=== PATIENT | male | born 1960 | race Caucasian/White ===

== ENCOUNTER 2021-12-11 11:17 | Inpatient (IN) | payer MEDICAID, OTHER ==
[~2021-12-11] VITALS: Ht 172.7 cm; Wt 108.0 kg
[2021-12-11] MEDS ORDERED: cloNIDine HCL 0.1 MG TAB PO ONE (11:30)
[2021-12-11 12:46] LABS: Eosinophils # (auto) 0.2 10 ^3/uL (0-0.8); Monocytes # (auto) 0.4 10 ^3/uL (0-1.3); Nucleated Red Blood Cells % 0.1 %
[2021-12-11 12:48] LABS: Basophils # (auto) 0 10 ^3/uL (0-0.2); Basophils % (auto) 0.7 % (0.0-2.0); Eosinophils % (auto) 3.1 % (0.0-7.0); Hematocrit 44.6 % (41.0-53.0); Hemoglobin 14.6 g/dL (13.5-17.5); Lymphocytes # (auto) 1.4 10 ^3/uL (0.4-5.4); Lymphocytes % (auto) 23.8 % (10.0-50.0); Mean Corpuscular Hemoglobin 23.8 pg (28.0-32.0); Mean Corpuscular Hgb Conc. 32.8 g/dL (32.0-36.0); Mean Corpuscular Volume 72.6 fL (80.0-100.0); Monocytes % (auto) 7.3 % (0.0-12.0); Neutrophils # (auto) 3.8 10 ^3/uL (1.6-8.6); Neutrophils % (auto) 65.1 % (37.0-80.0); Red Blood Cells 6.14 10^6/uL (4.5-5.90); Red Cell Distribution Width 16.6 % (11.8-14.3); White Blood Cell 5.8 10^3/uL (4.4-10.8)
[2021-12-11 12:50] LABS: Calcium 9.4 mg/dL (8.5-10.1); Potassium 4.6 mmol/L (3.5-5.1)
[2021-12-11 12:58] LABS: BUN/Creatinine Ratio 25.6; Bilirubin, Total 0.3 mg/dL (0.2-1.0); Total Protein 8.3 g/dL (6.4-8.2)
[2021-12-11] MEDS ORDERED: ASPirin 81 mg TAB PO ONE (13:15)
[2021-12-11] MEDS ORDERED: NITROGLYCERIN 0.4 MG SL TAB SL PRN (15:00)
[2021-12-11] MEDS ORDERED: cloNIDine HCL 0.1 MG TAB PO PRN (15:00)
[2021-12-11] MEDS ORDERED: ONDANSETRON HCL 4 MG/2 ML VIAL IV PRN (15:00)
[2021-12-11] MEDS ORDERED: HYDROcodone-ACET 5/325MG TAB PO PRN (15:00)
[2021-12-11] MEDS ORDERED: MORPHINE SULFATE INJECTION 2 MG/ML SYRG IV PRN (15:00)
[2021-12-11] MEDS ORDERED: ACETAMINOPHEN 325 MG TAB PO PRN ×2 (15:00)
[2021-12-11] MEDS: ENOXAPARIN SOD 100 MG/1 ML SYRINGE SC SCH (17:17)
[2021-12-11 18:21] VITALS: BP_SYST 153; BP_DIAS 74; BP_DIAS 79
[2021-12-11] MEDS ORDERED: INSU1INJ19 SC (18:59)
[2021-12-11] MEDS ORDERED: BACL10TA PO (18:59)
[2021-12-11] MEDS ORDERED: METF-370 PO (19:01)
[2021-12-11] MEDS ORDERED: GLIP5TAB12 PO (19:01)
[2021-12-11] MEDS ORDERED: GEMF-19 PO (19:01)
[2021-12-11] MEDS ORDERED: OMEP20TA PO (19:01)
[2021-12-11] MEDS ORDERED: ERTU15TA PO (19:05)
[2021-12-11] MEDS ORDERED: [UNRECOGNIZED DRUG - CODE] PO (19:05)
[2021-12-11] MEDS ORDERED: ASPI81CH49 PO (19:05)
[2021-12-11] MEDS ORDERED: AML5T PO (19:05)
[2021-12-11] MEDS ORDERED: LISI40TA11 PO (19:05)
[2021-12-11] MEDS ORDERED: GABA400C11 PO (19:05)
[2021-12-11] MEDS: METOPROLOL TARTRATE 25 MG TAB PO SCH (20:00)
[2021-12-11] MEDS ORDERED: DEXTROSE (50%) 50ML SYRG IV PRN (21:45)
[2021-12-11] MEDS ORDERED: ATORVASTATIN 20 MG TAB PO SCH (22:00)
[2021-12-11] MEDS: GABAPENTIN 400 MG CAP PO SCH (23:27)
[2021-12-11] MEDS: LISINOPRIL 20 MG TAB PO SCH (23:30)
[2021-12-11] MEDS: InsuLIN REG 1unit/0.01ml Soln (100units/ml) SC SCH (23:33)
[2021-12-11] MEDS: ACCU-CHEK COMFORT CURVE STRIP VI SCH (23:36)
[2021-12-12 05:00] VITALS: BP 123/59
[2021-12-12] MEDS: ENOXAPARIN SOD 100 MG/1 ML SYRINGE SC SCH (05:38)
[2021-12-12] MEDS: ACCU-CHEK COMFORT CURVE STRIP VI SCH ×2 (06:47→11:30)
[2021-12-12] MEDS: InsuLIN REG 1unit/0.01ml Soln (100units/ml) SC SCH ×2 (06:47→11:30)
[2021-12-12 07:01] LABS: INR 1.06 (0.9-1.15); Partial Thromboplastin Time 35.3 sec (23.6-33.0)
[2021-12-12 07:17] LABS: Calcium 8.7 mg/dL (8.5-10.1); Potassium 4.5 mmol/L (3.5-5.1)
[2021-12-12 08:17] LABS: Urine Bacteria NONE SEEN /hpf (None Seen); Urine Blood Negative /uL (Negative); Urine Specific Gravity 1.026 (1.001-1.035); Urine WBC <1 /hpf (0 - 3)
[2021-12-12 08:23] LABS: Amphetamine Screen, Urine NEGATIVE (NEGATIVE); Barbiturate Scree,Urine NEGATIVE (NEGATIVE); Benzodiazephine Screen, Urine NEGATIVE (NEGATIVE); Cannabinoid Screen, Urine NEGATIVE (NEGATIVE); Cocaine Screen, Urine NEGATIVE (NEGATIVE); Opiate Scree,Urine NEGATIVE (NEGATIVE); Phencyclidine Screen, Urine NEGATIVE (NEGATIVE)
[2021-12-12 08:40] VITALS: BP 136/78
[2021-12-12] MEDS: GABAPENTIN 400 MG CAP PO SCH (09:41)
[2021-12-12] MEDS: METOPROLOL TARTRATE 25 MG TAB PO SCH (09:41)
[2021-12-12] MEDS: LISINOPRIL 20 MG TAB PO SCH (09:42)
[2021-12-12] MEDS ORDERED: ASPirin 81 mg TAB PO SCH (10:00)
[2021-12-12] MEDS ORDERED: ENOXAPARIN SOD 40 MG/0.4 ML SYRINGE SC SCH (10:00)
[2021-12-12] MEDS ORDERED: amLODIPine BESYLATE 5 MG TAB PO SCH (10:00)
[2021-12-12 13:06] VITALS: BP 159/84
[2021-12-12 15:59] VITALS: BP 156/80
[2021-12-12 17:01] VITALS: BP 164/84
[2021-12-12] MEDS ORDERED: MINOXIDIL 2.5 MG TAB PO SCH (22:00)
[2021-12-13] MEDS ORDERED: LISINOPRIL 20 MG TAB PO SCH (10:00)
[2021-12-13] MEDS ORDERED: ENOXAPARIN SOD 40 MG/0.4 ML SYRINGE SC SCH (10:00)
== END 2021-12-12 17:16 | disposition home or self-care (01) | DRG 199 ==
LOC: EDBD 11:17 → ER 11:17 → TELE 14:56 → TELE-WESTW 17:42
PROVIDERS: ADMIT Hospitalist; ATTEND Hospitalist
DX: I16.9 Hypertensive crisis, unspecified (principal); I11.9 Hypertensive heart disease without heart failure; E11.9 Type 2 diabetes mellitus without complications; E66.9 Obesity, unspecified; R77.8 Other specified abnormalities of plasma proteins; K21.9 Gastro-esophageal reflux disease without esophagitis; Z82.49 Family history of ischemic heart disease and other diseases of the circulatory system; Z83.3 Family history of diabetes mellitus; Z68.36 Body mass index [BMI] 36.0-36.9, adult; Z90.49 Acquired absence of other specified parts of digestive tract; Z20.822 Contact with and (suspected) exposure to COVID-19; Z79.84 Long term (current) use of oral hypoglycemic drugs
CPT/HCPCS: 36415; 71046; 80048; 80053; 80061; 80307; 81001; 82962; 83036; 83880; 84484; 85025; 85610; 85730; 87086; 87426; 93005; 93306; G0378; J1815